=== PATIENT | male | born 1990 | race Caucasian/White ===

== ENCOUNTER 2021-03-09 20:53 | Emergency (ER) | payer OTHER ==
[2021-03-09 21:52] LABS: Carbamazepine-Tegretol Less than 1.9 ug/mL (4.0-12.0)
== END 2021-03-09 23:16 ==
LOC: ERS 20:53
DX: G40.909 Epilepsy, unspecified, not intractable, without status epilepticus (principal); K21.9 Gastro-esophageal reflux disease without esophagitis; Z79.899 Other long term (current) drug therapy
CPT/HCPCS: 36415; 80156; 80177; 80185; 99284

== ENCOUNTER 2021-03-10 20:21 | Emergency (ER) | payer OTHER ==
[2021-03-10] MEDS ORDERED: Lorazepam 2 MG/ML VIAL ONE (20:34)
== END 2021-03-10 21:04 ==
LOC: ERS 20:21
DX: G40.409 Other generalized epilepsy and epileptic syndromes, not intractable, without status epilepticus (principal); K21.9 Gastro-esophageal reflux disease without esophagitis
CPT/HCPCS: 96374; J2060

== ENCOUNTER 2021-03-14 23:12 | Emergency (ER) | payer OTHER | END 2021-03-14 23:50 | LOC: ERS 23:12 | DX: R56.9 Unspecified convulsions (principal); K21.9 Gastro-esophageal reflux disease without esophagitis | CPT/HCPCS: 93005 ==